=== PATIENT | female | born 1995 | race Two or more races ===

== ENCOUNTER 2024-07-14 15:14 | Emergency (ER) | payer OTHER ==
[~2024-07-14] VITALS: Ht 162.6 cm; Wt 85.3 kg
[~2024-07-14 15:14] MED LIST: BENADRYL25 MG PO; MEDROLPACK PO; ZYRTEC10 M3 PO
[2024-07-14] MEDS ORDERED: TRAMADOL HCL 50 MG TABLET PO ONE (17:15)
[2024-07-14] MEDS ORDERED: 0.9 % SODIUM CHLORIDE 1,000 ML IV ONE (17:15)
[2024-07-14] MEDS ORDERED: ONDANSETRON HCL 2 MG/ML VIAL IV ONE (17:15)
[2024-07-14 17:49] LABS: HEMATOCRIT 39.9 % (36.0-45.00); HEMOGLOBIN 13.7 g/dL (12.0-15.00); MEAN CELL VOLUME 88.5 fL (80.00-100.00); MEAN CORPUSCULAR HEMOGLOBIN 30.4 pg (27.00-32.0); MEAN CORPUSCULAR HGB CONC 34.3 g/dl (32.0-36.0); PLATELET COUNT 332 K/uL (150-450); RED CELL DISTRIBUTION WIDTH 13.6 % (11.5-14.5)
[2024-07-14 18:18] LABS: ALBUMIN 4.5 gm/dL (3.4-5.0); ALKALINE PHOSPHATASE 62 U/L (50-136); ALT/SGPT 21 U/L (12-78); ANION GAP 10 (10.0-20.0); AST/SGOT 13 U/L (15-37); BILIRUBIN TOTAL 0.63 mg/dL (0.3-1.2); BLOOD UREA NITROGEN 12 mg/dL (7-18); BUN CREA RATIO 18 (7.0-25.0); CALCIUM 9.8 mg/dL (8.5-10.1); CARBON DIOXIDE 28 mEq/L (21-32); CHLORIDE 108 mmol/L (98-107); CREATININE SERUM 0.66 mg/dL (0.55-1.02); GFR 105.15; GLOBULINA 3.7 G/DL (2.4-3.5); GLUCOSE FASTING 100 mg/dL (65-100); OSMOLALITY SERUM 283 MOSM/KG (275-295); POTASSIUM 4.16 mEq/L (3.5-5.1); SODIUM 142 mmol/L (136-145); TOTAL PROTEIN 8.2 gm/dL (6.4-8.2)
[2024-07-14 18:28] LABS: HCG QUANTITATIVE < 1 mUI/mL (1-3)
[2024-07-14 18:51] LABS: URINE APPEARANCE Clear; URINE BILIRRUBIN Negative (NEGATIVE); URINE BLOOD Negative; URINE COLOR Yellow; URINE GLUCOSE Negative (NEGATIVE); URINE LEUKOCYTE Negative; URINE NITRATE Negative; URINE PROTEIN Negative (NEGATIVE); URINE UROBILINOGEN 0.2 E.U./dl
[2024-07-14 18:54] LABS: URINE BACTERIA 338.7 uL (0.0-1933); URINE EPITHELIAL CELLS 6.3 uL (0.0-38.8); URINE RBC 2.4 uL (0.0-20.8); URINE WBC 9.5 uL (0.0-23.2)
[2024-07-14 18:56] LABS: URINE KETONE 80 (NEGATIVE)
[2024-07-14] MEDS ORDERED: PIPERACILLIN/TAZOBACTAM SODIUM 3.375 GM VIAL IV ONE (20:45)
== END 2024-07-14 22:24 | disposition home or self-care (01) ==
LOC: ER 15:16
PROVIDERS: General Practice
DX: K52.89 Other specified noninfective gastroenteritis and colitis (principal); Z88.6 Allergy status to analgesic agent